=== PATIENT | male | born 2000 | race Caucasian/White ===

== ENCOUNTER 2019-07-22 13:23 | Emergency (ER) | payer MEDICAID ==
[~2019-07-22] VITALS: Ht 180.3 cm; Wt 126.1 kg
[2019-07-22 13:44] VITALS: Ht 180.3 cm; Wt 126.1 kg
[2019-07-22 15:24] VITALS: BP 147/98
== END 2019-07-22 15:24 | disposition home or self-care (01) ==
LOC: ED 13:23
DX: H66.92 Otitis media, unspecified, left ear (principal)

== ENCOUNTER 2019-09-12 17:37 | Emergency (ER) | payer MEDICAID ==
[~2019-09-12] VITALS: Ht 180.3 cm; Wt 128.4 kg
[2019-09-12 17:51] VITALS: Ht 180.3 cm; Wt 128.4 kg
[2019-09-12 21:58] VITALS: BP 114/66
== END 2019-09-12 21:58 | disposition home or self-care (01) ==
LOC: ED 17:37
DX: M54.5 Low back pain (principal)

== ENCOUNTER 2020-07-17 21:42 | Emergency (ER) | payer MEDICAID ==
[~2020-07-17] VITALS: Ht 182.9 cm; Wt 127.0 kg
[2020-07-17 22:14] VITALS: Ht 182.9 cm; Wt 127.0 kg
[2020-07-17 23:58] LABS: UA SPECIFIC GRAVITY 1.025 (1.005-1.035); microscopic required? YES; urine erythrocyte NEGATIVE (NEGATIVE)
[2020-07-18 01:31] VITALS: BP 127/81
== END 2020-07-18 01:31 | disposition home or self-care (01) ==
LOC: ED 21:42
PROVIDERS: Emergency Medicine
DX: K76.0 Fatty (change of) liver, not elsewhere classified (principal); N39.0 Urinary tract infection, site not specified; E66.9 Obesity, unspecified